=== PATIENT | male | born 1975 | race American Indian/Alaskan Native ===

== ENCOUNTER 2021-05-13 02:57 | Emergency (ER) | payer SELFPAY ==
--- NOTE | 2021-05-13 06:19 | Emergency Department Report ---
ED Syncope HPI - General Chief Complaint: Wound/Laceration Stated Complaint: LAC TO HEAD Time Seen by Provider: 05/13/21 05:58 - History of Present Illness Initial Comments: Patient presented for syncope. He states "I was drunk and passed out." He admits to drinking alcohol. He was walking around. He states that he then passed out. He did fall backward striking his head. This was from a standing position. He states that he is sore at this time. He does have an occipital headache. He denies blurry vision or double vision. No neck pain or back pain. He has no chest pain or abdominal pain. He states that he just does not feel well. He has passed out numerous times before when he has been drinking. Patient denies any fevers or chills recently. He has had no GI complaints. He has no chest pain or palpitations. - Related Data Allergies/Adverse Reactions: Allergies No Known Allergies Allergy (Unverified 05/13/21 03:28) ED Review of Systems ROS: Stated complaint: LAC TO HEAD Other details as noted in HPI Comment: All other systems reviewed and negative Constitutional: denies: fever Eyes: denies: vision change ENT: denies: throat pain Respiratory: denies: cough Cardiovascular: denies: chest pain Endocrine: denies: unexplained weight loss Gastrointestinal: denies: abdominal pain Genitourinary: denies: dysuria Musculoskeletal: denies: back pain Skin: denies: rash Neurological: as per HPI, headache (Mild) Hematological/Lymphatic: denies: easy bruising ED Past Medical Hx - Past Medical History Hx Hypertension: Yes Additional medical history: anxiety, syncope, - Surgical History Past Surgical History?: No - Family History Family history: hypertension - Social History Substance Use Type: Alcohol ED Physical Exam - General Limitations: No Limitations, Other (Pulse ox is noted normal) General appearance: alert, in no apparent distress - Head Head exam: Present: other (There is a 5 cm curvilinear laceration that is well approximated to the occiput. There is no other sign of trauma. Patient does shave his head.) - Eye Eye exam: Present: normal appearance, PERRL, EOMI. Absent: scleral icterus - ENT ENT exam: Present: normal exam, normal orophraynx, mucous membranes moist, normal external ear exam - Neck Neck exam: Present: normal inspection, full ROM, other (No pain or paresthesias with static range of motion, axial load, or active range of motion.). Absent: tenderness, meningismus - Respiratory Respiratory exam: Present: normal lung sounds bilaterally. Absent: respiratory distress - Cardiovascular Cardiovascular Exam: Present: regular rate, normal rhythm - GI/Abdominal GI/Abdominal exam: Present: soft. Absent: distended, tenderness - Back Exam Back exam: Absent: tenderness, CVA tenderness (R), CVA tenderness (L) - Neurological Exam Neurological exam: Present: alert, oriented X3, CN II-XII intact, normal gait, reflexes normal. Absent: motor sensory deficit - Psychiatric Psychiatric exam: Present: normal affect, normal mood - Skin Skin exam: Present: warm, dry ED Course Vital Signs 05/13/21 05/13/21 05/13/21 03:14 08:34 08:35 Temperature 98.1 F 98.0 F Pulse Rate 82 77 Respiratory 18 18 Rate Blood Pressure 127/66 127/73 [Left] O2 Sat by Pulse 97 97 98 Oximetry - Reevaluation(s) Reevaluation #1: 05/13/21 06:18 Scalp was cleaned and repaired with Dermabond. EKG and glucose have been ordered. Old records reviewed. - Laceration /Wound Repair Posterior Head Wound Location: head Wound Length (cm): 5 Wound's Depth, Shape: superficial Wound Explored: clean Irrigated w/ Saline (ccs): 250 Betadine Prep?: Yes Wound Repaired With: Dermabond Layer Closure?: No Sterile Dressing Applied?: Yes ED Medical Decision Making - EKG Data -: EKG Interpreted by Me - EKG Data 05/13/21 09:33 EKG shows a normal sinus rhythm at 76. Intervals are normal including a QRS of 96 and a QT corrected of 123. Patient has no ST elevation suggestive of STEMI. There is no ST depression suggestive of ischemia. Patient has T wave flattening in 3 with poor R wave progression. There is no old EKG for comparison. - Medical Decision Making Patient presents with a fall and possible syncopal event related to alcohol intoxication. He did have a scalp laceration which was repaired. After observation, he was neurologically intact with a stable gait. He is not anticoagulated. I did not have concern for subdural or epidural hematomas at this point. He does not have a headache. He has a stable gait. Patient has no evidence of dysrhythmia. Accu-Chek was noted. I suspect that the fall was related to alcohol intoxication. He scalp lack has been repaired and the patient was discharged. Critical care attestation.: If time is entered above; I have spent that time in minutes in the direct care of this critically ill patient, excluding procedure time. ED Disposition Clinical Impression: Alcohol ingestion Fall Qualifiers: Encounter type: initial encounter Qualified Code(s): W19.XXXA - Unspecified fall, initial encounter Scalp laceration Qualifiers: Encounter type: initial encounter Qualified Code(s): S01.01XA - Laceration without foreign body of scalp, initial encounter Disposition: HOME / SELF CARE / HOMELESS Is pt being admited?: No Condition: Stable Instructions: Wound Care, Adult, Sutures, [place], or Adhesive Wound Closure, [id number] Additional Instructions: Keep the scalp clean. Do not use ointments on the wound. Apply ice. Use Tylenol for pain. Drink plenty of water. Limit alcohol consumption. Apply ice to sore areas. Referrals: PRIMARY MD KARTHIKEYAN [Primary Care Provider] - 3-5 Days JENNIFER SIMS MD [Staff Physician] - 3-5 Days
[2021-05-13 08:35] VITALS: BP 127/73
--- NOTE | 2021-05-21 10:17 | Electrocardiograph Report ---
[facility] Test Date: 2021-05-13 Test Time: 08:23:08 Pat Name: GERMÁN MELGAR Department: Room: Gender: M Quality Head: BUD : 1975 Requested By: ESMER PENG Order Number: [id number] Reading MD: Ab Gomez Measurements Intervals [place] Rate: 76 P: 42 ND: 186 QRS: -6 QRSD: 96 T: 31 QT: 394 QTc: 443 Interpretive Statements Sinus rhythm No previous ECG available for comparison Electronically Signed On 05-21-2021 10:16:49 EDT by Ab Gomez
== END 2021-05-13 08:41 | disposition home or self-care (01) ==
LOC: ED 02:57
DX: S01.01XA Laceration without foreign body of scalp, initial encounter (principal); F10.129 Alcohol abuse with intoxication, unspecified; I10 Essential (primary) hypertension; Z79.899 Other long term (current) drug therapy; W18.39XA Other fall on same level, initial encounter; Y93.89 Activity, other specified; Y92.89 Other specified places as the place of occurrence of the external cause; Y99.8 Other external cause status; Y90.0 Blood alcohol level of less than 20 mg/100 ml
CPT/HCPCS: 82962; 93005; 99284